=== PATIENT | male | born 1950 | race Caucasian/White ===

== ENCOUNTER 2024-09-28 17:58 | Emergency (ER) | payer MEDICARE, SELFPAY ==
[2024-09-28 18:11] VITALS: BP 124/95
--- NOTE | 2024-09-28 18:20 | ED.GENMED ---
ED Provider Triage
<Alana Beltran NP - Last Filed: 09/28/24 18:24>
-
Patient seen by provider in Triage?: Seen in Triage
Attestation: A medical screening examination has been initiated by a qualified medical provider. Based on the assessment performed at this time, it has been determined that an emergent medical condition may exist and the patient has been informed
that further medical evaluation and possible additional diagnostic testing may be needed.
HPI: 74-year-old male presents for an hour ago had 'really bad diarrhea, nausea and I started to sweat terribly and the room was feeding and he felt like he was going to pass out.' No actual syncope
Denies vomiting. No known exposures, did have some frozen [place] noodles with broth a couple hours prior to incident.
At this time 'I feel weak, I do not feel nauseous, I do not feel like I have to go to the bathroom.' States his distant vision is clear but his near vision is a little blurry like when he was looking on his phone.
GENERAL: Alert , in no apparent distress
EYE: No visual abnormalities.
NECK: Trachea midline
ENT: No visible abnormalities.
LUNGS: No acute respiratory distress
NEUROLOGICAL: Alert and oriented
SKIN: Skin intact. No visible changes.
MUSCULOSKELETAL: Moving extremities normally
PSYCH: Normal and appropriate interaction.
This is a medical evaluation conducted in person to initiate diagnostic evaluation and provide initial therapeutics. Please see further documentation by the treating clinician.
History of Present Illness
<Alana Beltran SUPERVISOR FELTING - Last Filed: 09/28/24 18:24>
General
Chief Complaint: Fainting Sensation
Time Seen by Provider: 09/28/24 21:35
<TIGIST Harmon - Last Filed: 09/29/24 03:16>
General
Source: patient
Exam Limitations: none
History of Present Illness
History of Present Illness:
This is a 74 year old male that comes in with c/o diarrhea. States that he didn't eat today and he only had a little chicken broth with some noodles. States that he was fine until he had this and then he had diarrhea. States that it was 'epic'.
States that he was a little nauseated and he was dizzy. Denies any fever, chills, chest pain, SOB, abd pain, vomiting, headache, urinary burning.
Past History
<Alana Beltran SUPERVISOR [employer]TING - Last Filed: 09/28/24 18:24>
Past History
ED Past Medical History: Asthma, Hypercholesterolemia, Other (Kidney stones), Other (Frequent headaches, osteoarthritis) and Other (cholelithiasis)
ED Past Surgical History: Tonsilectomy and Urological (Lithotripsy 1999, 2000, 2004, 2006)
Social History
Tobacco: Non-smoker
Alcohol: Occasional
Drug: None
Personal:
Living: with family
Employment: Retired
Family History
Family History: Hypertension; Negative Early CAD
<TIGIST Harmon - Last Filed: 09/29/24 03:16>
Past History
ED Past Medical History: Cancer (Sarcoma skin), GERD, HTN and Other (Kidney stones, Anemia, )
ED Past Surgical History: Tonsilectomy, Urological (Lithotripsy 1999, 2000, 2004, 2006, Double J-stent) and Other (Left shoulder cyst removed, Hernia)
Review of Systems
<TIGIST Harmon - Last Filed: 09/29/24 03:16>
Review of Systems
All Other Systems: ROS reviewed and negative except as documented in HPI and ROS
Constitutional: Reports no symptoms; Denies fever or chills
EENT: Reports no symptoms
Respiratory: Reports no symptoms; Denies cough or trouble breathing
Cardiac: Reports no symptoms
ABD/GI: Reports nausea and diarrhea; Denies abdominal pain or vomiting
: Reports no symptoms; Denies dysuria, frequency or urgency
Musculoskeletal: Reports no symptoms
Skin: Reports no symptoms
Neurological: Reports dizzy; Denies headache
Psychiatric: Reports no symptoms
Phy Exam
<TIGIST Hamron - Last Filed: 09/29/24 03:16>
General Physical Exam
General Presentation: well appearing and no apparent distress
General age: appears stated age
General Skin: warm and dry
General Habitus: elderly
General Mental: alert
General Hydration: dry mucous membranes
ENT Exam
ENT Exam: TM's normal, pharynx normal and neck supple
Eye Exam
Eye Exam: EOMI
Cardiovascular Exam
Cardiovascular Exam: no edema, normal peripheral pulses and tachycardia
Pulmonary Exam
Pulmonary Exam: lungs clear, no respiratory distress, no rales, chest non tender, no crackles, no rhonchi, no wheezing and no cough
Gastrointestinal Exam
Gastrointestinal Exam: normal bowel sounds, non tender, soft, no organomegaly, no pulsatile mass and non distended
Musculoskeletal Exam
Musculoskeletal Exam: full ROM and no edema
Skin Exam
Skin Exam: normal color, warm/dry, no rash and no petechia
Psychiatric Exam
Psychiatric Exam: normal mood/affect
Course
<Alana Beltran SUPERVISOR [employer]TING - Last Filed: 09/28/24 18:24>
Orders/Labs/Results
Orders:
Orders
09/28/24 18:16
Electrocardiogram (*1) Urgent
Reason for Study: Syncope
EKG- Treatment ONCE
09/28/24 18:33
Complete Blood Count/With Diff Urgent
Comprehensive Metabolic Panel Urgent
Lipase Urgent
09/28/24 21:52
0.9% Sodium Chloride 1000 ml [Nss] 1,000 ml IV BOLUS
09/28/24 23:06
Ondansetron Injectable [Zofran] 4 mg IV NOW STA
Abnormal Lab Results
09/28/24
18:33
WBC 11.8 H 10^3/uL
(4.8-10.8)
MCH 25.9 L pg
(27.0-31.0)
MCHC 32.3 L g/dL
(33.0-37.0)
RDW 15.0 H %
(11.5-14.5)
MPV 10.5 H fL
(7.4-10.4)
Absolute Neuts (auto) 6.7 H 10^3/uL
(1.4-6.5)
Absolute Lymphs (auto) 4.1 H 10^3/uL
(1.2-3.4)
BUN 24 H mg/dl
(9-20)
Glucose 155 H mg/dl
(70-99)
09/28/24 18:33
09/28/24 18:33
Vital Signs
Initial and Last Documented VS:
Initial Vital Signs
Temp Pulse Resp BP Pulse Ox
98.4 F 92 18 124/95 96
09/28/24 18:11 09/28/24 18:11 09/28/24 18:11 09/28/24 18:11 09/28/24 18:11
Last Documented Vital Signs
Temp Pulse Resp BP Pulse Ox
98.4 F 91 17 142/94 95
09/28/24 18:11 09/28/24 23:18 09/28/24 23:18 09/28/24 23:00 09/28/24 23:15
Tristanlt;TIGIST Harmon - Last Filed: 09/29/24 03:16>
Orders/Labs/Results
Orders:
Orders
09/28/24 18:16
Electrocardiogram (*1) Urgent
Reason for Study: Syncope
EKG- Treatment ONCE
09/28/24 18:33
Complete Blood Count/With Diff Urgent
Comprehensive Metabolic Panel Urgent
Lipase Urgent
09/28/24 21:52
0.9% Sodium Chloride 1000 ml [Nss] 1,000 ml IV BOLUS
09/28/24 23:06
Ondansetron Injectable [Zofran] 4 mg IV NOW STA
Abnormal Lab Results
09/28/24
18:33
WBC 11.8 H 10^3/uL
(4.8-10.8)
MCH 25.9 L pg
(27.0-31.0)
MCHC 32.3 L g/dL
(33.0-37.0)
RDW 15.0 H %
(11.5-14.5)
MPV 10.5 H fL
(7.4-10.4)
Absolute Neuts (auto) 6.7 H 10^3/uL
(1.4-6.5)
Absolute Lymphs (auto) 4.1 H 10^3/uL
(1.2-3.4)
BUN 24 H mg/dl
(9-20)
Glucose 155 H mg/dl
(70-99)
09/28/24 18:33
09/28/24 18:33
WBC slightly elevated. Anemia, Dehydration. Hyperglycemia. Lipase normal at 126
Vital Signs
Initial and Last Documented VS:
Initial Vital Signs
Temp Pulse Resp BP Pulse Ox
98.4 F 92 18 124/95 96
09/28/24 18:11 09/28/24 18:11 09/28/24 18:11 09/28/24 18:11 09/28/24 18:11
Last Documented Vital Signs
Temp Pulse Resp BP Pulse Ox
98.4 F 91 17 142/94 95
09/28/24 18:11 09/28/24 23:18 09/28/24 23:18 09/28/24 23:00 09/28/24 23:15
<TIGIST Harmon - Last Filed: 09/29/24 03:16>
MDM/Problems Addressed
Differential Diagnosis Includes:
Diarrhea, Viral Gi syndrome
MDM/Problems Addressed:
This is a 74 year old male that comes in with c/o diarrhea. States that he had'n't eaten all day and then had chicken broth with noodles. States that after this he had diarrhea.
Will check labs and given IV fluids.
Back into see patient. Patient states that he wants to go home. States that now he is a little nauseated. Will give IV Zofran and discharge patient.
Chronic conditions affecting care:
NA
Acute Exacerbation and/or Progression of Chronic Illness:
NA
<TIGIST Harmon - Last Filed: 09/29/24 03:16>
*Pulse Oximetry
Patient hypoxic: no
*EKG
Interpreted by ED Provider?: Yes
Heart Rate: 93
Rate: normal
Rhythm: sinus
Mckenzie: left axis deviation
Interval: normal interval
QRS Pattern: right bundle branch block (Incomplete BBB)
Ischemia: no ischemia
*Fluid Designer Interpretation
Rate: tachycardiac
Heart Rate: 102
*Critical Care Note
Total Time (30-74mins, 75-104mins- exclusive of procedures): Not Applicable
ED Attending Note
<Alana Beltran SUPERVISOR [employer]TING - Last Filed: 09/28/24 18:24>
-
Portions of this chart may have been created with voice recognition software.� Occasional wrong word or��sound alike� substitutions may have occurred due to the inherent limitations of voice recognition software.
Discharge Plan
Departure
Patient Disposition: Home (Routine Discharge)
Date of Disposition: 09/28/24
Time of Disposition: 23:01
Patient with high blood pressure during this ER visit?: Yes
Condition: Good
Covid-19: Not Applicable
Discharge Problem:
Diarrhea, Dehydration
Instructions: Diarrhea in teens and adults, Dehydration, Adult (DC), BLOOD PRESSURE
Prescriptions:
No Action
aspirin 81 MG tablet,delayed release (DR/EC)
81 mg PO DAILY
famotidine 20 MG tablet
20 mg PO BID
amlodipine 5 mg tablet
5 mg PO DAILY
allopurinol 100 mg tablet
100 mg PO DAILY
sildenafil 25 mg tablet
25 mg PO DAILY PRN (Reason: ed)
pravastatin 80 mg tablet
80 mg PO DAILY
valsartan 160 mg tablet
160 mg PO DAILY
esomeprazole magnesium 20 mg Tablet,Delayed Release (Dr/Ec)
20 mg PO DAILY
Referrals:
Alaina Betancourt MD [Family Provider] - Follow up in 2-3 days
Activity Restrictions/Additional Instructions:
As discussed, your blood work shows that you are dehydrated. Please increase your water intake to 8-8oz glasses daily. You have been given IV fluids here. Please stay away form milk and milk products if you have any further diarrhea. This may be
the GI viral syndrome that is going around or from the soup with noodles that you eat. Follow up with the family doctor for recheck. IF YOU HAVE ANY OTHER CONCERNS PLEASE RETURN TO THE EMERGENCY ROOM.
Interventions
Interventions:
*Risk Screen - Suicide Last Done: 09/28/24 18:11
*General Assessment Last Done: 09/28/24 18:11
*Neglect/Abuse Screening Last Done: 09/28/24 18:11
ED- Fall Risk Assessment Last Done: 09/28/24 23:32
*ED COVID-19 Vaccine History Last Done: 09/28/24 21:35
*Nursing Disposition Last Done: 09/28/24 23:32
HL-Cxoini-Qeloybukgx Assessment Last Done: 09/28/24 21:35
ED- Cardiac Assessment Last Done: 09/28/24 21:35
ED- Neurological Assessment Last Done: 09/28/24 21:35
Discharge Date and Time
Discharge Date/Time: 09/28/24 23:32
Print Language: MALAY
[2024-09-28 18:44] LABS: % Basophils 0.8 % (0-2); % Eosinophils 2.8 % (0-6); % Immature Granulocytes 0.3 % (0-0.5); % Lymphocytes 34.6 % (20.5-51.1); % Monocytes 4.4 % (1.7-9.3); % Neutrophils 57.1 % (42.2-75.2); Absolute Basophils 0.1 10^3/uL (0-0.2); Absolute Eosinophils 0.3 10^3/uL (0-0.7); Absolute Lymphocytes 4.1 10^3/uL (1.2-3.4); Absolute Monocytes 0.5 10^3/uL (0.1-0.6); Absolute Neutrophils 6.7 10^3/uL (1.4-6.5); Hemoglobin 15.2 g/dL (13.0-18.0); Mean Corp Hgb Conc. 32.3 g/dL (33.0-37.0); Mean Corpuscular Hgb 25.9 pg (27.0-31.0); Mean Corpuscular Volume 80.2 fL (80.0-94.0); Mean Platelet Volume 10.5 fL (7.4-10.4); Nucleated Red Blood Cells % 0 % (-); Platelet Count 240 10^3/uL (130-400); Red Blood Cell Count 5.86 10^6/uL (4.70-6.10); White Blood Cell Count 11.8 10^3/uL (4.8-10.8)
[2024-09-28 18:57] LABS: ALT (SGPT) 28 U/L (0-50); AST (SGOT) 29 U/L (17-59); Albumin 4.6 g/dl (3.5-5.0); Alkaline Phosphatase 54 U/L (38-126); Blood Urea Nitrogen 24 mg/dl (9-20); Calcium 9.2 mg/dl (8.4-10.2); Carbon Dioxide 24 mmol/L (22-30); Chloride 102 mmol/L (98-107); Glucose 155 mg/dl (70-99); Lipase 126 U/L (23-300); Potassium 4.4 mmol/L (3.5-5.1); Sodium 139 mmol/L (135-145); Total Bilirubin 0.9 mg/dl (0.2-1.3); Total Protein 7.7 g/dl (6.3-8.2); eGFR 57.29
[2024-09-28 20:37] VITALS: BP 129/88
[2024-09-28 21:25] VITALS: BP 140/95
[2024-09-28 22:00] VITALS: BP 125/113
[2024-09-28] MEDS: NSS 1000 IV (22:05)
[2024-09-28 23:00] VITALS: BP 142/94
[2024-09-28] MEDS: ZOFRAN 4 MG IV (23:12)
== END 2024-09-28 23:32 | disposition home or self-care (01) ==
LOC: EMR 17:58
PROVIDERS: Emergency Medicine; EMERGENCY PHYSICIAN Emergency Medicine; FAMILY PHYSICIAN Family Medicine
DX: R19.7 Diarrhea, unspecified (principal); E86.0 Dehydration; J45.909 Unspecified asthma, uncomplicated; I10 Essential (primary) hypertension; E78.00 Pure hypercholesterolemia, unspecified; K21.9 Gastro-esophageal reflux disease without esophagitis; D64.9 Anemia, unspecified; M19.90 Unspecified osteoarthritis, unspecified site; Z82.49 Family history of ischemic heart disease and other diseases of the circulatory system; Z87.442 Personal history of urinary calculi
CPT/HCPCS: 99283; 96374; 96361; 80053; 83690; 85025; 93005

== ENCOUNTER → 2024-11-27 13:14 | Outpatient (REF) | payer MEDICARE, SELFPAY | LOC: RAD 13:14 | PROVIDERS: ATTENDING PHYSICIAN Specialist; FAMILY PHYSICIAN Family Medicine; REFERRING PHYSICIAN Surgery | DX: N20.0 Calculus of kidney (principal) | CPT/HCPCS: 74176 ==